=== PATIENT | female | born 1960 | race Two or more races ===

== ENCOUNTER → 2017-04-07 08:07 | Outpatient (CLI) | payer OTHER ==
[~2017-04-07] VITALS: Ht 165.1 cm; Wt 56.8 kg
--- NOTE | ~2017-04-07 | HP ---
PATIENT: KEN SWAIN MEDICAL RECORD: [id number] ACCOUNT: [id number] LOCATION:[facility] : 62 ADMISSION DATE: 04/07/17 HISTORY AND PHYSICAL EXAMINATION DIAGNOSES: 1. Angina. 2. Family history of coronary artery disease. 3. Syncope. 4. Hypertension. HISTORY OF PRESENT ILLNESS: Ms. Webber presents with increasing anginal symptomatology as well as recurrent syncope. She has very strong family history of coronary artery disease. REVIEW OF SYSTEMS: The patient reports easy bruising but reports no swollen glands. The patient reports no fever, no night sweats, no significant weight gain, no significant weight loss. No significant exercise tolerance. The patient reports no dry eyes, no irritation, no vision change. Patient reports no difficulty hearing and no ear pain. Patient reports no frequent nose bleeds or nose and sinus problems. Patient reports no arm pain on exertion. No shortness of breath while lying down. No history of heart murmur. Patient reports no cough, no wheezing or coughing up blood. Patient reports no abdominal pain, no vomiting. Normal appetite. No diarrhea and not vomiting blood. No nausea and no constipation. Patient reports no incontinence. No difficulty urinating. No hematuria. No increased frequency. Patient reports no muscle aches. No weakness, no arthralgias, no back pain. No swelling of the extremities. Patient reports no abnormal mole, no jaundice, no rashes. Reports no loss of consciousness. No weakness and no numbness. No seizures, dizziness, or headaches. The patient reports no depression, no sleep disturbance, feeling safe in a relationship and no alcohol abuse. Patient reports on fatigue. Reports no runny nose or sinus pressure. No itching, no hives, and no frequent sneezing. PHYSICAL EXAMINATION: GENERAL APPEARANCE: Well-nourished, well-developed, appears stated age. Level of distress, comfortable. PSYCHIATRIC: Mental status, alert, normal affect. Orientation, oriented to time, place and person. EYES: Lids and conjunctiva, noninjected. No discharge, no pallor. ENT: Lips, teeth, gums, normal dentition. Oropharynx, no cyanosis, no pallor. NECK: Carotid arteries, bilateral normal upstroke, no bruits, no thrills. JUGULAR VEINS: No jugular venous pressure or distention. CERVICAL LYMPH NODES: Nontender, nonenlarged. THYROID: Not enlarged. Nontender. No nodules. LUNGS: Respiratory effort, unlabored. CHEST: Normal curvature. No thoracic deformity. No chest wall tenderness. Percussion, resonant. Auscultation, clear. No wheezes, no rales, no rhonchi. CARDIOVASCULAR: Precordial exam, nondisplaced. No heaves or pericardial thrills. Rate and rhythm, regular. Heart sounds, normal S1, normal S2. No S3, no gallop, no rub. Systolic murmur, not heard. Diastolic murmur, not heard. EXTREMITIES: No cyanosis, no edema. Peripheral pulses, full and equal in all extremities, except as noted. No bruits appreciated. ABDOMEN: Soft, nondistended. Normal aorta. No bruit. Nontender. No masses. Liver, nontender, no hepatomegaly. Spleen, nontender, no splenomegaly. HISTORY AND PHYSICAL [id number] KEN SWAIN MUSCULOSKELETAL: No joint tenderness. No joint swelling. No erythema. NEUROLOGICAL: Normal gait, normal strength, normal tone. SKIN: Warm and dry. OVERALL IMPRESSION: Anginal symptomatology with syncope. We will proceed with coronary angiography, 4-vessel, vertebral and carotid angiography. TRANSINT:[id number] Voice Confirmation ID: [id number] DOCUMENT ID: [id number] SHADY HAMILTON MD at 1148 CC: [id number] DICTATION DATE: 04/07/17 0950 BARREL COOPER: 04/07/17 1011 REG [facility] [address] [place] [address]
--- NOTE | ~2017-04-07 | EC ---
PATIENT:KEN SWAIN DATE OF SERVICE: 04/07/17 SEX: F MEDICAL RECORD: [id number] DATE OF : 62 LOCATION:D.CAT AGE OF PATIENT: 56 ADMISSION DATE: 04/07/17 REFERRING PHYSICIAN: INTERPRETING PHYSICIAN: SHADY YOUNG MD ECHOCARDIOGRAM REPORT ECHO CHARGES 4 ECHO COMPLETE CLINICAL DIAGNOSIS: ANGINA/SYNCOPE/AI ECHOCARDIOGRAPHIC MEASUREMENTS (adult normal given) AC root (d.<3.7cm) 3.4 cm LV Septum d (<1.2 cm> 1.3 cm Valve Excursion 2.1 cm LV Septum (systole) 1.9 cm Left Atria (s.<4.0cm> 3.6 cm LVPW d(<1.2cm) 1.0 cm RV (d.<2.3cm) 2.4 cm LVPW (sytole) 1.7 cm LV diastole(<5.6CM) 4.7 cm MV E-F(>70mm/sec) cm LV systole 2.4 cm LVOT Diameter 1.9 cm MV exc.(>10mm) cm Est.ejection fraction (50-75%) % Pericardial Effusion N DOPPLER: LVIT cm/sec A 50.0 cm/sec E 67.0 cm/sec LA cm/sec RVSP 48.0 mmHg LVOT 104 cm/sec AOP1/2T m/s Asc. 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 Young TAPE# PACS DATE OF SERVICE: 04/07/2017 PROCEDURE: Echocardiogram. FINDINGS: 1. Left ventricle chamber size is within normal limits. Left ventricular systolic function is normal. Overall ejection fraction estimated at 55%. 2. Left atrium, right atrium, and right ventricle chamber sizes are within normal limits. 3. Valvular structures have normal structure and motion. ECHOCARDIOGRAM REPORT [id number] KEN SWAIN 4. Doppler interrogation reveals [id number] aortic insufficiency, mild mitral regurgitation, mild tricuspid regurgitation, no other valvular insufficiency or stenosis. 5. No evidence of pericardial effusion or left ventricular thrombus. TRANSINT:[id number] Voice Confirmation ID: [id number] DOCUMENT ID: [id number] SHADY YOUNG MD at 1148 CC: [id number] DICTATION DATE: 04/07/17 1028 COLLIERY CLERK: 04/07/17 1039 REG [facility] [address] [place] [id number]
--- NOTE | ~2017-04-07 | OP ---
PATIENT NAME: KEN SWAIN MEDICAL RECORD: [id number] :62 LOCATION:D.CAT ADMISSION DATE: SURGEON: SHADY HAMILTON MD DATE OF OPERATION: 04/07/2017 PROCEDURES: 1. Left heart catheterization. 2. Selective coronary angiography. 3. Left ventriculogram. 4. Four-vessel carotid and vertebral angiography. 5. LINQ interrogation. PROCEDURE IN DETAIL: After informed consent was obtained and after detailed explanation of risks, benefits as well as alternative therapies, the patient elected to proceed with angiogram. The right femoral area was prepped and draped in normal sterile fashion. The right femoral artery was cannulated via modified Seldinger technique with placement of 5-Italian sheath. All catheters exchanged through this sheath. FINDINGS: There was a subselection of each subclavian as well as the left carotid. RIGHT SIDE: The common internal and external carotids have mild plaquing, none greater than 10%. Vertebral arteries devoid of disease. LEFT SYSTEM: The common internal and external carotids have mild plaquing, none greater than 10%. Vertebral arteries devoid of disease. Left ventriculogram was performed in standard 30-degree WHEELER view reveals good cardiac wall motion throughout all segments. Overall ejection fraction estimated at 60%. SELECTIVE CORONARY ANGIOGRAPHY: 1. Left main, left anterior descending, left circumflex, and right coronary are smooth-walled vessels with no angiographic evidence of coronary artery disease. 2. LINQ monitor was interrogated, no dysrhythmias were present. OVERALL IMPRESSION: Chest pain is noncardiac in etiology. Syncope is not secondary to carotid vascular disease or cardiovascular disease and no evidence of dysrhythmia. TRANSINT:[id number] Voice Confirmation ID: [id number] DOCUMENT ID: [id number] SHADY HAMILTON MD CC: [id number] DICTATION DATE: 04/07/17 1125 ORTHOPEDICS TEACHER: 04/07/17 114[address] [place] [id number] [place] [address]
--- NOTE | ~2017-04-07 | HEMODYNAMI ---
PATIENT:KEN SWAIN MEDICAL RECORD: [id number] : 62 LOCATION:[facility] ADMISSION DATE: 04/07/17 Generatedon:04/07/201711:26 Patient name: KEN LERMA Patient #: [id number] SSN: : 1960 Date of study: 04/07/2017 Page: Of Hemodynamic Procedure Report Patient Data Patient Demographics Procedure consent was obtained First Name: KEN Gender: Female Last Name: CHARLES : 1960 [place] Age: 56 year(s) Middle Initial: R Race: Other Patient #: [id number] Additional ID: [id number] Contact details [address]: [address] [place] [address] State: [place] City: [place] Zip code: [address] Past Medical History Allergies: No known allergies Admission Admission Data Admission Date: 04/07/2017 Admission Time: 8:07 Lab Results Lab Result Date: 04/07/2017 Lab Result Time: 9:25 Biochemistry Name Units Result Min Max BUN mg/dl 10 --(-*--)-- 7 18 Creatinine mg/dl 0.9 --(-*--)-- 0.6 1.3 CBC Name Units Result Min Max Hematocrit % 40.9 -*(----)-- 42 54 Hemoglobin g/dl 14.1 --(*---)-- 13.5 17.5 Procedure Procedure Types Cath Procedure Diagnostic Procedure LHC LHC w/Coronaries Peripheral Cath Diagnostic Procedure Cath Peripheral Four Vessel Arteriogram Procedure Description Procedure Date Procedure Date: 04/07/2017 Procedure Start Time: 11:15 Procedure End Time: 11:24 Procedure Staff Name Function Bart Young MD Performing Physician David Joiner RT Monitor Gerri Pacheco RT Scrub Jesus Sims RN Nurse Procedure Data Cath Procedure Fluoroscopy Diagnostic fluoroscopy Total fluoroscopy Time: 2.1 time: 2.1 min min Diagnostic fluoroscopy Total fluoroscopy dose: 268 dose: 268 mGy mGy Contrast Material Contrast Material Type Amount (ml) Isovue 300 63 Entry Location Entry Primary Successful Side Size Upsize Upsize Entry Closure Succes sful Closure Location (Fr) 1 (Fr) 2 (Fr) Remarks Device Remarks Femoral Right 5 Fr Exoseal artery Estimated blood loss: 5 ml Diagnostic catheters Device Type Used For End Catheter Placement MULTIPACK 3DRC 5Fr Procedure catheter MULTIPACK JL 4.0 5Fr Procedure catheter MULTIPACK Pigtail 5 Fr Procedure catheter Procedure Complications No complications Procedure Medications Medication Administration Route Dosage 0.9% NaCl I.V. 100 ml/hr Oxygen NC 2 l/min Heparin Flush Bag added to field 2 bags (1000units/500ml NS) Lidocaine 2% added to field 20 Versed I.V. 2 mg Fentanyl I.V. 100 mcg Versed I.V. 1 mg Hemodynamics Rest HGB: 14.1 (g/dl) Heart Rate: 72 (bpm) Snapshots Pre Cath Intra NCS Post Cath Vital Signs Time Heart Resp SPO2 etCO2 NIBP Rhythm Pain Sedation Rate (ipm) (%) (mmHg) (mmHg) Status Level (bpm) 10:53:53 71 18 100 32.5 127/74(96) NSR 0 (11) 10(A) , No pain 10:58:41 68 17 100 33.2 125/69(94) NSR 0 (11) 10(A) , No pain 11:03:28 76 17 100 36.3 117/66(85) NSR 0 (11) 10(A) , No pain 11:08:13 68 16 100 35.5 112/67(87) NSR 0 (11) 10(A) , No pain 11:12:58 73 15 100 34 122/68(91) NSR 0 (11) 9(A) , No pain 11:17:42 74 14 100 39.3 115/66(86) NSR 0 (11) 9(A) , No pain 11:22:27 70 17 100 37.8 124/71(91) NSR 0 (11) 9(A) , No pain Medications Time Medication Route Dose Verified Delivered Reason Notes Effe ctiveness by by 10:52:04 0.9% NaCl I.V. 100 Jesus Jesus Per ml/hr Bethany Sims physician RN RN 10:52:15 Oxygen NC 2 Jesus Jesus Per l/min Bethany Sims physician RN RN 10:52:28 Heparin Flush added 2 Jesus Jesus used for Bag to bags Bethany Sims procedure (1000units/500ml field RN RN NS) 10:52:38 Lidocaine 2% added 20ml Jesus Jesus for local to vial Lorigan Nellyigan anesthetic field RN RN 11:14:53 Versed I.V. 2 mg Jesus Jesus for Lorigan Lorigan sedation RN RN 11:15:03 Fentanyl I.V. 100 Jesus Jesus for mcg Lorigan Lorigan sedation RN RN 11:17:25 Versed I.V. 1 mg Jesus Jesus for Lorigan Lorigan sedation RN boot repairer Log Time Note 10:40:18 Jesus Sims RN sent for patient. Start room use. 10:40:18 Time tracking: Regular hours 10:40:22 Plan of Care:Hemodynamics will remain stable., Cardiac rhythm will remain stable., Comfort level will be maintained., Respiratory function will remain adequate., Patient/ family verbilizes understanding of procedure., Procedure tolerated without complication., Recovers from procedure without complications.. 10:40:25 Signed procedure consent form obtained from patient. 10:42:39 Patient received from Pre/Post Procedure Room to CCL 1 Alert and oriented. Tansferred to table in Supine position. 10:42:40 Warm blankets applied, and michelle hugger turned on for patient comfort. 10:42:41 Correct patient and procedure confirmed by team. 10:42:42 ECG and BP/O2 sat monitors applied to patient. 10:52:04 0.9% NaCl 100 ml/hr I.V. was administered by Jesus Sims RN; Per physician; 10:52:15 Oxygen 2 l/min NC was administered by Jesus Sims RN; Per physician; 10:52:28 Heparin Flush Bag (1000units/500ml NS) 2 bags added to field was administered by Jesus Sims RN; used for procedure; 10:52:38 Lidocaine 2% 20ml vial added to field was administered by Jesus Sims RN; for local anesthetic; 10:52:53 Vital chart was started 10:55:59 Baseline sample Acquired. 10:56:03 Rhythm: sinus rhythm 10:56:05 Full Disclosure recording started 10:56:12 H&P Date Dictated: 04/07/2017 New H&P dictated by physician.. 10:56:14 Pre-procedure instructions explained to patient. 10:56:14 Pre-op teaching completed and patient verbalized understanding. 10:56:15 Family in waiting room. 10:56:16 Patient NPO since Midnight. 10:56:24 Patient allergic to No known allergies 10:56:28 Is the patient allergic to Iodine/contrast media? No. 10:56:37 Is patient on blood thinner?No 10:56:39 Patient diabetic? No. 10:56:42 Previous problem with sedation/anesthesia? No ? 10:56:44 Snore? Yes 10:56:45 Sleep apnea? No 10:56:46 Deviated septum? No 10:56:46 Opens mouth fully? Yes 10:56:47 Sticks out tongue? Yes 10:56:48 Airway obstruction? No ? 10:56:50 Dentures? No ? 10:56:54 Pre procedure: right dorsailis pedis pulse 2+ Normal; easily identifiable; not easily obliterated 10:56:56 Patient pain scale 0/10 ?. 10:57:05 IV patent on arrival in left hand with 0.9% NaCl at [facility]. 10:57:33 Lab Result : BUN 10 mg/dl 10:57:33 Lab Result : Creatinine 0.9 mg/dl 10:57:33 Lab Result : Hemoglobin 14.1 g/dl 10:57:33 Lab Result : Hematocrit 40.9 % 10:57:36 Lab results completed and on chart. 10:57:38 Right groin area was prepped with chlora-prep and draped in sterile fashion 10:57:40 Alarms reviewed by R. N. 10:57:40 Sharps counted by scrub and verified by R.N. 10:57:46 Use device set Femoral Dx 10:57:47 ACIST Syringe (12421) opened to sterile field. 10:57:48 Bag Decanter (2001S) opened to sterile field. 10:57:48 Medline Cath Pack ([id number]) opened to sterile field. 10:57:50 ACIST Hand Control (12274) opened to sterile field. 10:57:50 ACIST Manifold (98400) opened to sterile field. 10:57:52 Tegaderm 4 x 4 (1626W) opened to sterile field. 10:57:53 PERCUTANEOUS ENTRY 19GA needle opened to sterile field. 10:57:54 DIAGNOSTIC Multipack 5Fr catheter set (CP3583) opened to sterile field. 10:57:55 SHEATH 5FR [place] (DAP807) opened to sterile field. 10:57:56 DIAGNOSTIC WIRE .035 260cm J wire (597506) opened to sterile field. 10:59:51 Zero performed for pressure channel P1 11:14:12 Physician arrived 11::12 --------ALL STOP TIME OUT------ 11:14:12 Final Timeout: patient, procedure, and site verified with staff and physician. All members of the team are in agreement. 11:14:14 Right groin site verified by team. 11:14:17 Physical assessment completed. ASA score P 2 - A patient with mild systemic disease as per Bart Young MD. 11:14:19 Sedation plan: IV Moderate Sedation Medication:Versed, Fentanyl 11:14:53 Versed 2 mg I.V. was administered by Jesus Sims RN; for sedation; 11:15:03 Fentanyl 100 mcg I.V. was administered by Jesus Sims RN; for sedation; 11:15:40 Procedure started. 11:15:43 Local anesthetic to right femoral artery with Lidocaine 2% by Bart Young MD.INITIAL ACCESS ONLY 11:15:49 A 5 Fr sheath was inserted into the Right Femoral artery 11:16:02 A MULTIPACK 3DRC 5Fr catheter was advanced over the wire and used for Procedure. 11:16:43 Right carotid angiography performed. 11:17:25 Versed 1 mg I.V. was administered by Jesus Sims RN; for sedation; 11:17:29 Left carotid angiography performed. 11:18:16 Left subclavian angiography performed 11:18:39 RCA angiography performed. 11:19:39 Catheter exchanged over wire. 11:19:44 A MULTIPACK JL 4.0 5Fr catheter was advanced over the wire and used for Procedure. 11:19:50 LCA angiography performed. 11:19:54 Catheter exchanged over wire. 11:20:07 A MULTIPACK Pigtail 5 Fr catheter was advanced over the wire and used for Procedure. 11:20:30 LV gram done using WHEELER 11:20:33 Injector settings: Ml/sec: 10, Volume: 20, 11:20:39 EF : 60 % 11:20:40 Catheter removed. 11:20:42 EXOSEAL 5Fr (EX500) opened to sterile field. 11:20:48 Sheath removed intact; hemostasis achieved with Exoseal to the Right Femoral artery. 11:20:50 Procedure ended.(Physican Out) 11:23:20 Fluoroscopy time 02.10 minutes. 11:23:24 Fluoroscopy dose: 268 mGy 11:23:24 Flurop Dose total: 268 11:23:32 Contrast amount:Isovue 300 63ml. 11:23:33 Sharps counted by scrub and verified by R.N. 11:23:34 Insertion/operative site no bleeding no hematoma. 11:23:37 Post-op/insertion site Right Femoral artery dressed using a 4 x 4 and Tegaderm. 11:23:40 Post right femoral artery:stable, soft, clean and dry 11:23:42 Post Procedure Pulses reassessed and unchanged 11:23:45 Post procedure rhythm: unchanged. 11:23:47 Estimated blood loss: 5 ml 11:23:49 Post procedure instruction explained to patient.Patient verbalizes understanding. 11:23:49 Patient needs reinforcement of post procedure teaching. 11:24:05 Procedure type changed to Cath procedure, Diagnostic procedure, LHC, LHC w/Coronaries, Peripheral Cath Diagnostic Procedure, Cath Peripheral, Four Vessel Arteriogram 11:24:30 Procedure and supply charges have been captured, reviewed, submitted and are correct. 11:24:32 Procedure Complication : No complications 11:24:34 Vital chart was stopped 11:24:34 See physician's report for complete and final results. 11:24:36 Report given to Pre/Post Procedure Room. 11:24:38 Patient transfered to Pre/Post Procedure Room with Stretcher. 11:24:41 Procedure ended. 11:24:41 Full Disclosure recording stopped 11:25:09 End room use (Document Last) Device Usage Item Name Manufacture Quantity Catalog Hospital Part Current Minimal Lot# / Number Charge Number Stock Stock Serial# Code ACIST Acist 1 33244 [id number] 885985 [id number] 20 Syringe DieDe Die Development (27098) Systems Inc Bag Decanter Microtek 1 593713 64849 004247 5 () Medical Inc. Medline Cath Cardinal 1 [id number] 71519 746165 5 lancers Inc ([id number]) ACIST Hand Acist 1 45232 449242 169601 140733 5 Control Medical (14173) Systems Inc ACIST Acist 1 73624 936553 215911 396137 5 Manifold Medical (42245) Systems Inc Tegaderm 4 x 3M 1 1626W [id number] 477713 534457 5 4 (1626W) PERCUTANEOUS Cook Medical 1 [id number] 762357 108866 5 ENTRY 19GA needle DIAGNOSTIC Cardinal 1 VT3560 670768 12885 018819 30 Multipack Health 5Fr catheter set (DW7586) SHEATH 5FR Terumo 1 QEP754 476539 614292 153880 40 [place] (QXF500) DIAGNOSTIC St [place] 1 453145 551231 014251 382980 30 WIRE .035 260cm J wire (372789) MULTIPACK Cardinal 1 144082 5 3DRC 5Fr Health catheter MULTIPACK JL Cardinal 1 995720 5 4.0 5Fr Health catheter MULTIPACK Cardinal 1 209609 5 Pigtail 5 Fr Health catheter EXOSEAL 5Fr Cardinal 1 EX500 444686 315647 686290 10 (EX500) Health Signature Audit Shubuta Stage Time Signature Unsigned Intra-Procedure 04/07/2017 David Joiner 11:26:29 AM RT(R) Signatures Monitor : David Joiner RT Signature : Date : Time : [address] [address]
[~2017-04-07 08:07] MED LIST: NORVASC10 MG PO; PLAVIX75 MG PO; TOPROL XL25 MG
[2017-04-07 09:16] VITALS: BP 172/97; Ht 165.1 cm; Wt 56.8 kg
[2017-04-07 09:29] LABS: BASOPHILS 0.4 % (0-2); EOSINOPHILS 1.1 % (0-7); HEMATOCRIT 40.9 % (36.0-48.0); HEMOGLOBIN 14.1 g/dL (12-16); IMMATURE GRANULOCYTES 0.4 % (0-5); LYMPHOCYTES 38.3 % (15-50); MCH 30.2 pg (26.0-34.0); MCHC 34.5 g/dL (31.0-37.0); MCV 87.6 fL (80.0-100.0); MEAN PLATELET VOLUME 8.8 fL (7.4-10.4); MONOCYTES 8.6 % (2-11); NEUTROPHILS 51.2 % (40-80); PLATELET COUNT 346 10x3/uL (130-400); RBC 4.67 10x6/uL (4.00-5.40); RDW 13.6 % (11.5-14.5); WBC 5.6 10x3/uL (4.8-10.8)
[2017-04-07 09:47] LABS: ANION GAP 12.7 mmol/L (8-16); CALCIUM 9.8 mg/dL (8.5-10.1); CARBON DIOXIDE 26.1 mmol/L (21.0-32.0); CREATININE - SERUM 0.9 mg/dL (0.6-1.3); POTASSIUM - SERUM 3.8 mmol/L (3.5-5.1)
== END | disposition home or self-care (01) ==
LOC: D.CATH 08:07 → D.ECHO 09:00 → D.CATH 09:00
PROVIDERS: Internal Medicine Interventional Cardiology
DX: I20.9 Angina pectoris, unspecified (principal); I10 Essential (primary) hypertension; R55 Syncope and collapse; Z82.49 Family history of ischemic heart disease and other diseases of the circulatory system; Z01.812 Encounter for preprocedural laboratory examination